=== PATIENT | male | born 1965 | race Hispanic/Latino ===

== ENCOUNTER 2017-07-01 21:07 | Emergency (ER) | payer OTHER ==
--- OUTSIDE RECORDS SUMMARY | 2017-07-01 21:09 | XMS REPORT ---
:1965 Author Organization [employer] Care Team Providers Name Role Phone Jose Luis Ariel Provider Role Unavailable Allergies No Known Allergies Problems Problem Type Condition Code Onset Dates Condition Status Problem History of CVA (cerebrovascular Z86.73 Active accident) without residual deficits Problem Myocardial infarction I21.3 Active Problem Dysthymic disorder F34.1 Active Problem Coronary atherosclerosis of [place] I25.10 Active coronary artery Problem Urinary frequency R35.0 Active Problem Prediabetes R73.03 Active Problem Obstructive sleep apnea G47.33 Active Problem Mixed hyperlipidemia E78.2 Active Problem Glaucoma H40.9 Active Problem Head ache R51 Active Assessment Head ache R51 Active Assessment Urinary frequency R35.0 Active Assessment Prediabetes R73.03 Active Assessment Dysthymic disorder F34.1 Active Assessment Mixed hyperlipidemia E78.2 Active Assessment History of CVA (cerebrovascular Z86.73 Active accident) without residual deficits Assessment Coronary atherosclerosis of [place] I25.10 Active coronary artery Assessment Obstructive sleep apnea G47.33 Active Problem H/O TIA (transient ischemic attack) Z86.73 Active and stroke Medications Medication Code System Code Instructions Start Date End Date Status Dosage Aspirin [facility] [place] [id number] 81 MG Orally Once Active 1 tablet a day Zoloft [facility] [place] [id number] 50 MG Orally Once Active 1 tablet a day Crestor [facility] [place] [id number] 20 MG Orally Once Active 1 tablet a day Results No Known Results Summary Purpose [employer]ClinicalWorks Submission
--- OUTSIDE RECORDS SUMMARY | 2017-07-01 21:09 | XMS REPORT | Clinical Summary ---
:1965 Author Organization [facility] Address [address] [place] [address] Care Team Providers Name Role Phone Jamal Tinoco MD Primary Care Provider Allergies Active Allergy Reactions Severity Noted Date Comments Dye Palpitations Low 11/19/2016 Current Medications Prescription Sig. Disp. Refills Start Date End Date Status rosuvastatin (CRESTOR) 20 Take 20 mg by mouth 11 09/24/2016 Active MG tablet once daily. sertraline (ZOLOFT) 50 MG Take 50 mg by mouth 11 09/24/2016 Active tablet once daily. latanoprost (XALATAN) PUT 1 DROP INTO 4 09/24/2016 Active 0.005 % ophthalmic BOTH EYES AT solution BEDTIME nitroglycerin (NITROSTAT) Place 0.4 mg under Active 0.4 MG SL tablet the tongue every 5 (five) minutes as needed for chest pain. aspirin (ECOTRIN) 81 MG Take 81 mg by mouth Active enteric coated tablet daily. Active Problems No known active problems Encounters Date Type Specialty Care Team Description 06/29/2017 Office Visit Cardiology Kalie Palpitations (Primary Lashay Cordero) 06/29/2017 Orders Only Cardiology Cesar Jade MD 05/04/2017 Hospital Encounter Procedural Schdonaldo, Paroxysmal SVT Cardiology Cesar Valle, (supraventricular MD tachycardia) 04/27/2017 Orders Only Cardiology Silas Paroxysmal SVT Shelbi (supraventricular Rocio, RN tachycardia) (Primary Dx) 02/25/2017 Orders Only Cardiology Tylor Munguia MD 02/15/2017 Hospital Encounter Procedural Kalie, Canceled (Patient) Cardiology Cesar Valle MD 02/02/2017 Documentation Cardiology Shelbi RosenCOURTNEY 02/01/2017 Office Visit Cardiology Kalie, History of Cesar Valle, palpitations (Primary MD Dx) 02/01/2017 Orders Only Cardiology Silas, Exercise intolerance (Primary Dx ); Shelbi SOBOE (shortness of breath on exertion) COURTNEY Chan 02/01/2017 Orders Only Cardiology Silas, Atrial fibrillation, Shelbi unspecified type Rocio RN (Primary Dx) 01/11/2017 Orders Only Cardiology Tylor Munguia Palpitations (Primary Dx); MD Sindy Shortness of breath; Tachycardia 12/24/2016 Office Visit Tylor Cain Cardiac arrhythmia, MD Sindy unspecified cardiac arrhythmia type (Primary Dx) 11/19/2016 Office Visit Cardiology Tylor Munguia Establishing care with new doctor, encounter for (Primary Dx); MD Sindy Palpitations; Shortness of breath; Hyperlipidemia, unspecified hyperlipidemia type; Atrial tachycardia 11/19/2016 Orders Only Cardiology Tylor Munguia Shortness of breath ( Primary Dx); MD Sindy Precordial pain after 06/30/2016 Family History Medical History Relation Name Comments No Known Problems Brother Hypertension Father Stroke Father Diabetes type II Mother Hypertension Mother Relation Name Status Comments Brother Alive Father Alive Mother Alive Social History Tobacco Use Types Packs/Day Years Used Date Never Smoker Smokeless Tobacco: Never Used Alcohol Use Drinks/Week oz/Week Comments No Sex Assigned at Date Recorded Not on file Last Filed Vital Signs Vital Sign Reading Time Taken Blood Pressure 117/69 06/29/2017 9:27 AM CDT Pulse 68 06/29/2017 9:27 AM CDT Temperature - - Respiratory Rate - - Oxygen Saturation 98% 05/04/2017 1:03 PM CLEAT BLANKER Inhaled Oxygen Concentration - - Weight 72.6 kg (160 lb) 06/29/2017 9:27 AM CDT Height 167.6 cm (5' 6") 06/29/2017 9:27 AM CDT Body Mass Index 25.82 06/29/2017 9:27 AM CDT Plan of Treatment Date Type Specialty Care Team Description 07/19/2017 Surgery Procedural Cesar Jade Ep loop recorder Cardiology MD Leonard removal [[id number] ([facility] [place] [address] [place] [address] 07/19/2017 Procedure Pass Procedural Cardiology 07/19/2017 Hospital Encounter Procedural Cesar Jade MD [address] [facility] [address] [place] [address] Health Maintenance Due Date Last Done Comments COLONOSCOPY 2016 INFLUENZA VACCINE 10/13/2017 Procedures Procedure Name Priority Date/Time Associated Comments Diagnosis CV PACEMAKER DEFIB ILR Routine 06/29/2017 12:00 INTERROGATION AM CDT CV CARDIAC EVENT Routine 02/25/2017 12:00 MONITOR AM CLEAT BLANKER CV PACEMAKER DEFIB ILR Routine 02/01/2017 12:00 INTERROGATION AM CLEAT BLANKER CV CARDIAC EVENT Routine 02/01/2017 12:00 MONITOR AM CLEAT BLANKER CV PACEMAKER DEFIB ILR Routine 02/01/2017 12:00 INTERROGATION AM CLEAT BLANKER CV STRESS TEST NUCLEAR Routine 11/25/2016 3:26 Shortness of Results for this CARDIO PM CDT breath procedure are in Precordial pain the results section. ECHOCARDIOGRAM 2D Routine 11/25/2016 2:40 Shortness of Results for this COMPLETE W MMODE PM CDT breath procedure are in SPECTRAL COLOR DOPPLER Precordial pain the results (10598) section. after 06/30/2016 Results ECG 12 lead (06/29/2017 9:28 AM)Only the most recent of4 resultswithin the time period is included. Component Value Ref Range Ventricular rate 72 Atrial rate 72 WY interval 156 QRSD interval 154 QT interval 396 QTC interval 433 P axis 1 70 QRS axis 1 113 T wave axis 57 EKG impression Normal sinus rhythm-Right bundle branch block-Left posterior fascicular block-^^^ Bifascicular block ^^^-Abnormal ECG-In automated comparison with ECG of 01-FEB-2017 07:52,-Minimal criteria for Inferior infarct are no longer present- Specimen Performing Laboratory [facility] [address] [place] [address] CV pacemaker defib or ilr interrogation (06/29/2017)Cardiac mri pulmonary vein ablation eval w contrast (05/04/2017 2:20 PM) Specimen Performing Laboratory [facility] [address] [place] [address] Narrative [facility] CMR Report Name: TRINIDAD JENNA :1965 Scan Date: 2017-05-04 13:06:44 Signed by Shannon Acosta M.D. (uid:20 15:25:47. SUMMARY ====== 1.Normal cardiac chamber sizes. NO intracardiac thrombus or mass. 2.Normal LV and borderline RV systolic function without wall motion abnormalities, (LVEF 60%, RVEF 51%). 3.NO myocardial infarction or scarring. 4.The study was not optimized for valvular assessment. 5.The thoracic aorta is of normal caliber without stenosis, aneurysm, or dissection. Normal pulmonary venous anatomy. 6. Other: A metallic artifact in near the upper left sternum, consistent with a history of implantable loop Recorder FINAL IMPRESSION: A.NO EVIDENCE OF LA OR JANESSA THROMBUS. B.NORMAL PULMONARY VENOUS ANATOMY. CORE EXAM ====== MEASUREMENTS ------ ---- VOLUMETRIC ANALYSIS . . || | LV| Reference| RV| Reference | +------+-------+-------+ +-------+ + | EDV| ml| 135.1 |(112-176) | 155.2 |(107-191) | | ESV| ml|54.6 |(27-67) |76 |(23-76) | | CO | L/min |5.15 ||5.07 || | MASS | g | 118.9 |(103-165) | | | | SV | ml|80.5 |(74-118)|79.2 |(69-127)| | EF | % | 59.59 |(58-76) | 51.03 |(53-79) | '------+-------+-------+ +-------+ ' HEART RATE:64 bpm LV DIMENSIONS WALL THICKNESS - ANTEROSEPTAL:0.8 cm WALL THICKNESS - INFEROLATERAL:0.7 cm LV FELICIA:5.3 cm LV ESD:3.7 cm LA DIMENSIONS (LV SYSTOLE) DIAMETER:2.6 cm AREA - 2 CHAMBER:13.9 cm^2 LENGTH - 2 CHAMBER:3.9 cm AREA - 4 CHAMBER:14.6 cm^2 LENGTH - 4 CHAMBER:4.7 cm VOLUME:44.23 ml AORTIC ROOT DIMENSIONS DIAMETER - ANNULUS:2.4 cm DIAMETER - SINUS OF VALSALVA:2.9 cm DIAMETER - SINOTUBULAR JUNCTION:2.4 cm AORTIC ROOT SIZE:Normal CONDENSED SUMMARY ------ ---- LV:Normal Wall Thickness. Cavity Size is Normal. No Mass/Thrombus. RV:Normal Wall Thickness. Contractility is Normal. Cavity Size is Normal. No Mass/Thrombus. No Pacemaker/Defibrillator Wire. IVS:Normal Interventricular Septum. LA:Cavity Size is Normal. No Mass/Thrombus. IAS:LIPOMATOUS HYPERTROPHY. RA:Cavity Size is Normal. No Mass/Thrombus. No Additional Findings. No Pacemaker/Defibrillator Wire. PER:Normal Pericardium. No Effusion. No Diastolic Collapse. PE:No Pleural Effusion. AV:Trileaflet. No Aortic Stenosis. TV:Normal Leaflets. No Tricuspid Stenosis. MV:Normal Leaflets. No Mitral Stenosis. PV:Normal Leaflets. No Pulmonic Stenosis. 17 SEGMENT ------ ---- . ------ ------. | Segments | Wall Motion| Hyperenhancement | Stress Perfusion | Interpretation | + + + + +---- ------ ------+ | Base Anterior| Normal/Hyper | None ||| | Base Anteroseptal| Normal/Hyper | None ||| | Base Inferoseptal| Normal/Hyper | None ||| | Base Inferior| Normal/Hyper | None ||| | Base Inferolateral | Normal/Hyper | None ||| | Base Anterolateral | Normal/Hyper | None ||| | Mid Anterior | Normal/Hyper | None ||| | Mid Anteroseptal | Normal/Hyper | None ||| | Mid Inferoseptal | Normal/Hyper | None ||| | Mid Inferior | Normal/Hyper | None ||| | Mid Inferolateral| Normal/Hyper | None ||| | Mid Anterolateral| Normal/Hyper | None ||| | Apical Anterior| Normal/Hyper | None ||| | Apical Septal| Normal/Hyper | None ||| | Apical Inferior| Normal/Hyper | None ||| | Apical Lateral | Normal/Hyper | None ||| | [place] | Normal/Hyper | None ||| + + + + +---- ------ ------+ | RV Segments| Wall Motion| Hyperenhancement | Stress Perfusion | Interpretation | + + + + +---- ------ ------+ | RV Basal Anterior| Normal/Hyper | None ||| | RV Basal Inferior| Normal/Hyper | None ||| | RV Mid | Normal/Hyper | None ||| | RV Apical| Normal/Hyper | None ||| ' + + + +---- ------ ------' FINDINGS INFARCT/SCAR SIZE:0 % VASCULAR ====== SCAN INFO ====== GENERAL ------ ---- SEDATION SEDATION USED?:No CONTRAST AGENT TYPE:Dotarem LOT NUMBER:[id number] EXPIRATION DATE:2018-09-11 00:00:00 VOLUME ADMINISTERED:30 ml DOSAGE FOR 0.5M:0.21 mmol/kg SERUM CREATININE:0.9 sCr GFR:94.93 ml/min/1.73m^2 FEMALE:No OR BLACK:No CREATININE DATE:2017-05-04 00:00:00 LAB RESULT HEMATOCRIT LEVEL:50 % HEMATOCRIT DATE:2017-05-04 00:00:00 VITALS HEIGHT:66 in HEIGHT:167.64 cm BODY WEIGHT:159.99 lbs BODY WEIGHT:72.57 kgs BSA::1.82 m^2 SYSTOLIC BP:135 mmHg DIASTOLIC BP:83 mmHg HEART RATE:65 BPM HEART RHYTHM:Sinus Rhythm PULSE SEQUENCE PULSE SEQUENCES:Single-Shot SSFP, IR GRE - Segmented, IR GRE - Single Shot, IR SSFP - Single Shot, Single Shot BB [place], SSFP Cine, Phase Contrast Velocity Mapping, 3D MRA w and w/o contrast SETUP TYPE:Clinical INPATIENT:No LOCATION:[facility] INCOMPLETE SCAN:No REASON(S) FOR SCAN:PV Ablation REFERRING PHYSICIAN:Cesar Jade MD TECHNICIANS:Checo Ruvalcaba ASSISTANTS:1) Declan Watson 2) Alireza Mckeon 3) Gissell Azul ------ ---- Patient Account [id number] CPT Codes 10063, [ , ]48867, [ , ]28138 ICD10 Codes R93.1, [ , ]I48.0 Procedure Note Interface, Radiology Results In - 05/04/2017 3:26 PM [facility] CMR Report Name: JENNA TRINIDAD : 1965 Scan Date: 2017-05-04 13:06:44 Signed by Shannon Acosta M.D. (uid:20 15:25:47. SUMMARY 1. Normal cardiac chamber sizes. NO intracardiac thrombus or mass. 2. Normal LV and borderline RV systolic function without wall motion abnormalities, (LVEF 60%, RVEF 51%). 3. NO myocardial infarction or scarring. 4. The study was not optimized for valvular assessment. 5. The thoracic aorta is of normal caliber without stenosis, aneurysm, or dissection. Normal pulmonary venous anatomy. 6. Other: A metallic artifact in near the upper left sternum, consistent with a history of implantable loop Recorder FINAL IMPRESSION: A. NO EVIDENCE OF LA OR JANESSA THROMBUS. B. NORMAL PULMONARY VENOUS ANATOMY. CORE EXAM MEASUREMENTS VOLUMETRIC ANALYSIS . . | | | LV | Reference | RV | Reference | +------+-------+-------+ +-------+ + | EDV | ml | 135.1 | (112-176) | 155.2 | (107-191) | | ESV | ml | 54.6 | (27-67) | 76 | (23-76) | | CO | L/min | 5.15 | | 5.07 | | | MASS | g | 118.9 | (103-165) | | | | SV | ml | 80.5 | (74-118) | 79.2 | (69-127) | | EF | % | 59.59 | (58-76) | 51.03 | (53-79) | '------+-------+-------+ +-------+ ' HEART RATE: 64 bpm LV DIMENSIONS WALL THICKNESS - ANTEROSEPTAL: 0.8 cm WALL THICKNESS - INFEROLATERAL: 0.7 cm LV FELICIA: 5.3 cm LV ESD: 3.7 cm LA DIMENSIONS (LV SYSTOLE) DIAMETER: 2.6 cm AREA - 2 CHAMBER: 13.9 cm^2 LENGTH - 2 CHAMBER: 3.9 cm AREA - 4 CHAMBER: 14.6 cm^2 LENGTH - 4 CHAMBER: 4.7 cm VOLUME: 44.23 ml AORTIC ROOT DIMENSIONS DIAMETER - ANNULUS: 2.4 cm DIAMETER - SINUS OF VALSALVA: 2.9 cm DIAMETER - SINOTUBULAR JUNCTION: 2.4 cm AORTIC ROOT SIZE: Normal CONDENSED SUMMARY LV:Normal Wall Thickness. Cavity Size is Normal. No Mass/Thrombus. RV:Normal Wall Thickness. Contractility is Normal. Cavity Size is Normal. No Mass/Thrombus. No Pacemaker/Defibrillator Wire. IVS:Normal Interventricular Septum. LA:Cavity Size is Normal. No Mass/Thrombus. IAS:LIPOMATOUS HYPERTROPHY. RA:Cavity Size is Normal. No Mass/Thrombus. No Additional Findings. No Pacemaker/Defibrillator Wire. PER:Normal Pericardium. No Effusion. No Diastolic Collapse. PE:No Pleural Effusion. AV:Trileaflet. No Aortic Stenosis. TV:Normal Leaflets. No Tricuspid Stenosis. MV:Normal Leaflets. No Mitral Stenosis. PV:Normal Leaflets. No Pulmonic Stenosis. 17 SEGMENT . . | Segments | Wall Motion | Hyperenhancement | Stress Perfusion | Interpretation | + + + + +---- + | Base Anterior | Normal/Hyper | None | | | | Base Anteroseptal | Normal/Hyper | None | | | | Base Inferoseptal | Normal/Hyper | None | | | | Base Inferior | Normal/Hyper | None | | | | Base Inferolateral | Normal/Hyper | None | | | | Base Anterolateral | Normal/Hyper | None | | | | Mid Anterior | Normal/Hyper | None | | | | Mid Anteroseptal | Normal/Hyper | None | | | | Mid Inferoseptal | Normal/Hyper | None | | | | Mid Inferior | Normal/Hyper | None | | | | Mid Inferolateral | Normal/Hyper | None | | | | Mid Anterolateral | Normal/Hyper | None | | | | Apical Anterior | Normal/Hyper | None | | | | Apical Septal | Normal/Hyper | None | | | | Apical Inferior | Normal/Hyper | None | | | | Apical Lateral | Normal/Hyper | None | | | | [place] | Normal/Hyper | None | | | + + + + +---- + | RV Segments | Wall Motion | Hyperenhancement | Stress Perfusion | Interpretation | + + + + +---- + | RV Basal Anterior | Normal/Hyper | None | | | | RV Basal Inferior | Normal/Hyper | None | | | | RV Mid | Normal/Hyper | None | | | | RV Apical | Normal/Hyper | None | | | ' + + + +---- ' FINDINGS INFARCT/SCAR SIZE: 0 % VASCULAR SCAN INFO GENERAL SEDATION SEDATION USED?: No CONTRAST AGENT TYPE: Dotarem LOT NUMBER: [id number] EXPIRATION DATE: 2018-09-11 00:00:00 VOLUME ADMINISTERED: 30 ml DOSAGE FOR 0.5M: 0.21 mmol/kg SERUM CREATININE: 0.9 sCr GFR: 94.93 ml/min/1.73m^2 FEMALE: No OR BLACK: No CREATININE DATE: 2017-05-04 00:00:00 LAB RESULT HEMATOCRIT LEVEL: 50 % HEMATOCRIT DATE: 2017-05-04 00:00:00 VITALS HEIGHT: 66 in HEIGHT: 167.64 cm BODY WEIGHT: 159.99 lbs BODY WEIGHT: 72.57 kgs BSA:: 1.82 m^2 SYSTOLIC BP: 135 mmHg DIASTOLIC BP: 83 mmHg HEART RATE: 65 BPM HEART RHYTHM: Sinus Rhythm PULSE SEQUENCE PULSE SEQUENCES: Single-Shot SSFP, IR GRE - Segmented, IR GRE - Single Shot, IR SSFP - Single Shot, Single Shot BB [place], SSFP Cine, Phase Contrast Velocity Mapping, 3D MRA w and w/o contrast SETUP TYPE: Clinical INPATIENT: No LOCATION: [facility] INCOMPLETE SCAN: No REASON(S) FOR SCAN: PV Ablation REFERRING PHYSICIAN: Cesar Jade MD TECHNICIANS: Checo Ruvalcaba ASSISTANTS: 1) Declan Watson 2) Alireza Mckeon 3) Gissell Azul Patient Account [id number] CPT Codes 23116, [ , ]73013, [ , ]29862 ICD10 Codes R93.1, [ , ]I48.0 Estimated GFR (05/04/2017 11:52 AM) Component Value Ref Range GFR Non Af Amer 89 mL/min/1.73 m2 GFR Af Amer >90 mL/min/1.73 m2 Comment: Chronic kidney disease: <60 mL/min/1.73m2 Kidney failure: <15 mL/min/1.73m2 The estimated GFR is calculated from the IDMS-traceable Modification of Diet in Renal Disease Equation. The accuracy of the calculation is poor when the creatinine is normal. Calculated values >90 mL/min/1.73m2 are not reported. This equation has not been validated in children (<18 years), women, the elderly (>70 years), or ethnic groups other than Caucasians and Americans. Specimen Performing Laboratory Blood [facility] [address] [place] [address] POC panel (05/04/2017 11:52 AM) Component Value Ref Range POC creatinine 0.9Comment: Testing performed on the ISTAT instrument 0.7 - 1.2 mg/dl by RN [id number]. POC hematocrit 50 41 - 51 % Specimen Performing Laboratory [facility]OM[facility] MEDICINE [address] [place] [address] CV Cardiac event monitor (02/25/2017)CV Cardiac event monitor (02/01/2017)CV pacemaker defib or ilr interrogation (02/01/2017)CV pacemaker defib or ilr interrogation (02/01/2017)Cv exercise treadmill stress (no imaging) (11/25/2016 3:26 PM) Component Value Ref Range Resting HR 66 Resting BP 127 Peak MET Achieved 5.3 Protocol Name NAREN Time in Exercise Phase 00:07:00 Max Systolic BP 157 Max Diastolic BP 75 Max Heart Rate 141 Max Predicted Heart Rate 171 Target HR Formula (220 - Age)*85% Test Indication SOB Arrhy During Ex ECG Interp Before EX ECG Interp During Ex Ex Summary Comment Overall HR Response to Exercise Overall BP Response To Exercise Reason for Termination WALKING LEXISCAN/SOB Stress Test Impression Waveform interpreted in report associated with image study. No interpretation is provided as part of this Stress ECG report.--Electronically Signed By Maryjo ENAMORADO, Papi Cordova ([id number]), news assignment editor Valencia Biggs ([id number]) on 11/26/2016 10:28:52 AM Specimen Performing Laboratory [facility] [address] [place] [address] Cv myocardial perfusion (11/25/2016 3:26 PM) Specimen Performing Laboratory [facility] [address] [place] [address] Narrative Nuclear Cardiology Laboratory [address] [place] [address], [place] [address] Fev: [phone] Myocardial Perfusion Imaging Report Pat.Name:JENNA TRINIDAD Pat.ID:[id number] St.Date: 11/25/2016 Refer.MD:TYLOR MUNGUIA MD Exam Time: 2:54:00 PM Study Type:Myocardial Perfusion Imaging Height:66inWeight:172lb BSA: 1.88 m2 DOBAge:1965,50Y Sex: MALE Nuclear Tech:LORA Bautista, ARRT(CT)/LORA Harper, ARRT Pat. Stat.:Outpatient Nuclear Event ID:[id number] Order ID:[id number] Reason for Study:Abnormal EKG*, Chest pain, unspecified*, Shortness of breath Procedures:Single Day Stress / Rest Race: Clinical Symptoms:Regadenoson SUMMARY: BASELINE ECGNormal Sinus Rhythm, RBBB STRESS TEST RESULTS Maximal Predicted HR171 beats/minute 85% Maximal Predicted HR 145 beats/minute Stress Test Duration7 minutes 00 seconds Resting Heart Rate66 beats/minute Maximal Heart Ymxh507 beats/minute Resting Blood Tnomijak981/66 mmHg Maximal Blood Jubrttfw104/75 mmHg % Maximal Heart Rate Achieved 82% Symptoms During TestShortness of breath Reason for Stopping TestAs per walking regadenoson protocol Maximal ST-segment shiftNone Stress-Induced Arrhythmias None Ischemic electrocardiographic changes (ST-segment depression) did not occur at peak walking regadenoson stress. STRESS TEST INTERPRETATION Normal maximal regadenoson stress test. SCINTIGRAPHIC RESULTS Perfusion Defect Size (% LV) 0 % Total 0 % Ischemia 0 % Scar Left Ventricular Perfusion Results There is normal tracer distribution during stress and rest. Gated SPECT Results The post-stress left ventricular ejection fraction is 71 % with normal regional wall motion and left ventricular thickening.Left ventricular end-diastolic volume is 94 ml; end-systolic volume is27 ml. The left ventricle is of normal size at stress and at rest.The right ventricle is of normal size with normal wall motion. Conclusion Normalwalking regadenoson Tc-99m tetrofosmin myocardial perfusion study.The left ventricular ejection fraction is normal. Comments Patients with a normal stress myocardial perfusion study have a low (< 1%) annual risk of cardiac or nonfatal myocardial infarction. Study Quality/Artifacts The study quality is good. The mild reduction in mid and basal inferolateral wall counts during stress is probably due to marked diaphragmatic and other soft tissue attenuation artifacts rather than coronary artery disease, which resolves with prone imaging. Comparison to Previous Study None available. Signed 11/25/2016 06:17 PM Papi Sibley MD Procedure Note Interface, Radiology Results In - 11/25/2016 6:25 PM CDT Nuclear Cardiology Laboratory [address] [place] [address], [address] [place] [address] Myocardial Perfusion Imaging Report Pat.Name: JENNA TRINIDAD Pat.ID: [id number] St.Date: 11/25/2016 Refer.MD: TYLOR MUNGUIA MD Exam Time: 2:54:00 PM Study Type:Myocardial Perfusion Imaging Height: 66in Weight: 172lb BSA: 1.88 m2 Age: 11 1965,50Y Sex: MALE Nuclear Tech:LORA Bautista, ARRT(CT)/ LORA Harper, ARRT Pat. Stat.:Outpatient Nuclear Event ID:[id number] Order ID: [id number] Reason for Study:Abnormal EKG*, Chest pain, unspecified*, Shortness of breath Procedures:Single Day Stress / Rest Race: Clinical Symptoms:Regadenoson SUMMARY: BASELINE ECG Normal Sinus Rhythm, RBBB STRESS TEST RESULTS Maximal Predicted HR 171 beats/minute 85% Maximal Predicted HR 145 beats/minute Stress Test Duration 7 minutes 00 seconds Resting Heart Rate 66 beats/minute Maximal Heart Rate 141 beats/minute Resting Blood Pressure 127/66 mmHg Maximal Blood Pressure 157/75 mmHg % Maximal Heart Rate Achieved 82% Symptoms During Test Shortness of breath Reason for Stopping Test As per walking regadenoson protocol Maximal ST-segment shift None Stress-Induced Arrhythmias None Ischemic electrocardiographic changes (ST-segment depression) did not occur at peak walking regadenoson stress. STRESS TEST INTERPRETATION Normal maximal regadenoson stress test. SCINTIGRAPHIC RESULTS Perfusion Defect Size (% LV) 0 % Total 0 % Ischemia 0 % Scar Left Ventricular Perfusion Results There is normal tracer distribution during stress and rest. Gated SPECT Results The post-stress left ventricular ejection fraction is 71 % with normal regional wall motion and left ventricular thickening. Left ventricular end-diastolic volume is 94 ml; end-systolic volume is 27 ml. The left ventricle is of normal size at stress and at rest. The right ventricle is of normal size with normal wall motion. Conclusion Normal walking regadenoson Tc-99m tetrofosmin myocardial perfusion study. The left ventricular ejection fraction is normal. Comments Patients with a normal stress myocardial perfusion study have a low (< 1%) annual risk of cardiac or nonfatal myocardial infarction. Study Quality/Artifacts The study quality is good. The mild reduction in mid and basal inferolateral wall counts during stress is probably due to marked diaphragmatic and other soft tissue attenuation artifacts rather than coronary artery disease, which resolves with prone imaging. Comparison to Previous Study None available. Signed 11/25/2016 06:17 PM Papi Sibley MD Echocardiogram complete w contrast and 3D if needed (11/25/2016 2:40 PM) Specimen Performing Laboratory [facility] [address] [place] [address] Narrative [facility] Echocardiography Report Pat.Name:JENNA TRINIDAD Pat.ID:[id number] .Date: 11/25/2016 Refer.MD:TYLOR MUNGUIA MD Exam Time: 2:19:00 PMStudy Type:Routine Echo Height:66inWeight:170lb BSA: 1.87 m2 DOBAge:1965,50Y Sex: MALEBP:116/66 HR:75 bpmSonogrphr: Vikas Plata [facility] Pat. Stat.:OutpatientRoom:[place] [address] Study Status:Final Echo Event ID:[id number] Order ID:[id number] Reason for Study:Chest Pain, Shortness of Breath History / Clinical:Chest Pain, Shortness of Breath Procedures:2D Echo, Colorflow Doppler Race: SUMMARY: LV systolic function is normal. LA size is normal. LV relaxation is low-normal. LV filling pressure is normal. No intracardiac flow abnormalities detected by Doppler. FINDINGS: LV: LV size is normal. LV systolic function is normal. Overall wallmotion is normal. Estimated EF is 65-69% RV: RV size is normal. RV systolic function is normal. LA: LA size is normal. RA: RA size is normal. AO: Aortic root diameter is normal. LUIS ENRIQUE: No pericardial effusion. AV: No structural AV abnormalities noted. MV: No structural MV abnormalities noted. PV: No structural PV abnormalities noted. TV: No structural TV abnormalities noted. Cavanaugh: LV relaxation is low-normal. LV filling pressure is normal. Hepaticvein pressure is normal, RA pressure < 5mmHg. Other:Insufficient TR jet to estimate PA systolic pressure. No intracardiacflow abnormalities detected by Doppler. MEASUREMENTS: 2D Parasternal [place] LVOT 1.8 cmLA Ds3.1 cm LVIDd4.7 cmIndex 2.5 cm/m Ao An1.9 cm LVIDs2.9 cmAo Rtd 3.4 cm Index1.8 cm/m LV%fs 39 % LV Kbwk615.5 g(122-174) IVSd 0.7 cmLVM Index 65 g/m2 LVPWd0.8 cmRWT0.4 LA Sng Plane LA Area8.9 cm2(8.8-23.4) LA Vol 17.1 ml Index9.1 ml/m LA LngAx 3.9 cm Signed 11/26/2016 10:18 PM Valente Landrum M.D. Procedure Note Interface, Radiology Results In - 11/26/2016 10:18 PM CDT [facility] Echocardiography Report Pat.Name: JENNA TRINIDAD.ID: [id number] .Date: 11/25/2016 Refer.MD: TYLOR MUNGUIA MD Exam Time: 2:19:00 PM Study Type:Routine Echo Height: 66in Weight: 170lb BSA: 1.87 m2 Age: 10 1965,50Y Sex: MALE BP: 116/66 HR: 75 bpm Sonogrphr: LUIS Alaniz Pat. Stat.:Outpatient Room: [place] [address] Study Status:Final Echo Event ID:[id number] Order ID: [id number] Reason for Study:Chest Pain, Shortness of Breath History / Clinical:Chest Pain, Shortness of Breath Procedures:2D Echo, Colorflow Doppler Race: SUMMARY: LV systolic function is normal. LA size is normal. LV relaxation is low-normal. LV filling pressure is normal. No intracardiac flow abnormalities detected by Doppler. FINDINGS: LV: LV size is normal. LV systolic function is normal. Overall wall motion is normal. Estimated EF is 65-69% RV: RV size is normal. RV systolic function is normal. LA: LA size is normal. RA: RA size is normal. AO: Aortic root diameter is normal. LUIS ENRIQUE: No pericardial effusion. AV: No structural AV abnormalities noted. MV: No structural MV abnormalities noted. PV: No structural PV abnormalities noted. TV: No structural TV abnormalities noted. Cavanaugh: LV relaxation is low-normal. LV filling pressure is normal. Hepatic vein pressure is normal, RA pressure < 5mmHg. Other: Insufficient TR jet to estimate PA systolic pressure. No intracardiac flow abnormalities detected by Doppler. MEASUREMENTS: 2D Parasternal [place] LVOT 1.8 cm LA Ds 3.1 cm LVIDd 4.7 cm Index 2.5 cm/m Ao An 1.9 cm LVIDs 2.9 cm Ao Rtd 3.4 cm Index 1.8 cm/m LV%fs 39 % LV Mass 121.5 g (122-174) IVSd 0.7 cm LVM Index 65 g/m2 LVPWd 0.8 cm RWT 0.4 LA Sng Plane LA Area 8.9 cm2 (8.8-23.4) LA Vol 17.1 ml Index 9.1 ml/m LA LngAx 3.9 cm Signed 11/26/2016 10:18 PM Valente Landrum M.D. Lipid panel (11/19/2016 10:18 AM) Component Value Ref Range Cholesterol, total 150 <200 mg/dL HDL cholesterol 35 (L) >40 mg/dL Triglycerides 197 (H) <150 mg/dL LDL cholesterol calculated 86 mg/dL (calc) Comment: Reference range: <100 Desirable range <100 mg/dL for patients with CHD or diabetes and <70 mg/dL for diabetic patients with known heart disease. The Ynes calculation is a validated novel method that provides better accuracy than the Friedewald equation in the estimation of LDL-C, particularly when TG levels are 150-400 mg/dL and LDL-C levels are lower than 70 mg/dL. Reference:Jayson TARIQ et al. Comparison of a Novel Method vs the Friedewald Equation for Estimating Low-Density Lipoprotein Cholesterol Levels From the Standard Lipid Profile. YEHUDA. 2013;310(19): 2732-0552. For additional information, please refer to http://education.bizk.it.b-datum/faq/VJR932 (This link is being provided for informational/ educational purposes only.) Cholesterol/HDL ratio 4.3 <5.0 (calc) Non-HDL cholesterol 115 <130 mg/dL (calc) Comment: For patients with diabetes plus 1 major ASCVD risk factor, treating to a non-HDL-C goal of <100 mg/dL (LDL-C of <70 mg/dL) is considered a therapeutic option. Specimen Performing Laboratory Blood [facility] Narrative FASTING:YES after 06/30/2016 Insurance Payer Benefit Plan / Group Subscriber ID Type Phone Address [employer]HC MEDICARE UNITED/CARE IMPROVEMENT MCR xxxxxxxxx [facility] [phone] [place] [id number]
--- OUTSIDE RECORDS SUMMARY | 2017-07-01 21:09 | XMS REPORT ---
:1965 Author Organization eClinicalWorks Care Team Providers Name Role Phone [facility] Provider Role Unavailable Allergies No Known Allergies Problems Problem Type Condition Code Onset Dates Condition Status Problem History of CVA (cerebrovascular Z86.73 Active accident) without residual deficits Problem Myocardial infarction I21.3 Active Problem Dysthymic disorder F34.1 Active Problem H/O TIA (transient ischemic attack) Z86.73 Active and stroke Problem Coronary atherosclerosis of [place] I25.10 Active coronary artery Problem Urinary frequency R35.0 Active Problem Prediabetes R73.03 Active Problem Obstructive sleep apnea G47.33 Active Problem Mixed hyperlipidemia E78.2 Active Problem Glaucoma H40.9 Active Problem Head ache R51 Active Medications No Known Medications Results No Known Results Summary Purpose eClinicalWorks Submission
--- NOTE | 2017-07-01 22:46 | EDPHYS ---
Physician Documentation [facility] Name: Marques Cai Age: 51 yrs Sex: Male : 1965 Arrival Date: 07/01/2017 Time: 21:08 Bed 17 Private MD: ED Physician Panfilo Tan HPI: 07/01 22:23 This 51 yrs old Male presents to ER via Ambulatory with complaints of Flu pm1 Symptoms. 22:23 The patient or guardian reports cough, with no sputum, flu symptoms, "fever no greater pm1 than 99," body aches. Onset: The symptoms/episode began/occurred 2 day(s) ago. Severity of symptoms: in the emergency department the symptoms are unchanged. Associated signs and symptoms: Pertinent positives: sore throat, sinus congestion, post nasal drainage, Pertinent negatives: chest pain, diarrhea, ear ache, nausea, vomiting. The patient has not recently seen a physician. Historical: - Allergies: 21:27 Iodine; aj - Home Meds: 21:27 Crestor oral oral [Active]; Zoloft Oral [Active]; aspirin 81 mg Oral chew 1 tab once aj daily [Active]; - PMHx: 21:27 Depression; CVA; Hyperlipidemia; aj - PSHx: 21:27 Loop monitor for heart; aj - Immunization history:: Adult Immunizations up to date. - Social history:: Smoking status: Patient/guardian denies using tobacco. ROS: 22:23 Constitutional: Negative for fever, chills, and weight loss, Eyes: Negative for injury, pm1 pain, redness, and discharge. 22:23 Neck: Negative for injury, pain, and swelling, Cardiovascular: Negative for chest pain, palpitations, and edema. 22:23 Abdomen/GI: Negative for abdominal pain, nausea, vomiting, diarrhea, and constipation, Back: Negative for injury and pain, : Negative for injury, bleeding, discharge, and swelling, MS/Extremity: Negative for injury and deformity, Skin: Negative for injury, rash, and discoloration, Neuro: Negative for headache, weakness, numbness, tingling, and seizure. 22:23 ENT: Positive for sore throat, Negative for ear pain, sinus congestion, sinus pain, difficulty swallowing, difficulty handling secretions, hoarseness. 22:23 Respiratory: Positive for cough, Negative for shortness of breath, sputum production, wheezing. Exam: 22:23 Constitutional: This is a well developed, well nourished patient who is awake, alert, pm1 and in no acute distress. Head/Face: Normocephalic, atraumatic. Eyes: Pupils equal round and reactive to light, extra-ocular motions intact. Lids and lashes normal. Conjunctiva and sclera are non-icteric and not injected. Cornea within normal limits. Periorbital areas with no swelling, redness, or edema. ENT: Nares patent. No nasal discharge, no septal abnormalities noted. Tympanic membranes are normal and external auditory canals are clear. Oropharynx with no redness, swelling, or masses, exudates, or evidence of obstruction, uvula midline. Mucous membranes moist. Neck: Trachea midline, no thyromegaly or masses palpated, and no cervical lymphadenopathy. Supple, full range of motion without nuchal rigidity, or vertebral point tenderness. No Meningismus. Chest/axilla: Normal chest wall appearance and motion. Nontender with no deformity. No lesions are appreciated. Cardiovascular: Regular rate and rhythm with a normal S1 and S2. No gallops, murmurs, or rubs. Normal PMI, no JVD. No pulse deficits. Respiratory: Lungs have equal breath sounds bilaterally, clear to auscultation and percussion. No rales, rhonchi or wheezes noted. No increased work of breathing, no retractions or nasal flaring. Abdomen/GI: Soft, non-tender, with normal bowel sounds. No distension or tympany. No guarding or rebound. No evidence of tenderness throughout. Back: No spinal tenderness. No costovertebral tenderness. Full range of motion. Skin: Warm, dry with normal turgor. Normal color with no rashes, no lesions, and no evidence of cellulitis. MS/ Extremity: Pulses equal, no cyanosis. Neurovascular intact. Full, normal range of motion. 22:23 Neuro: Orientation: is normal, Mentation: is normal, Motor: is normal, moves all fours, Gait: is steady, at a normal pace, without difficulty. Vital Signs: 21:27 BP 121 / 87; Pulse 81; Resp 19; Temp 98.0; Pulse Ox 98% on R/A; Weight 68.04 kg; Height aj 5 ft. 6 in. (167.64 cm); Pain 0/10; 21:27 Body Mass Index 24.21 (68.04 kg, 167.64 cm) MDM: 21:42 Patient medically screened. pm1 22:44 Data reviewed: vital signs. Data interpreted: Pulse oximetry: on room air is 98 %. pm1 Interpretation: normal. Counseling: I had a detailed discussion with the patient and/or guardian regarding: the historical points, exam findings, and any diagnostic results supporting the discharge/admit diagnosis, lab results, the need for outpatient follow up, to return to the emergency department if symptoms worsen or persist or if there are any questions or concerns that arise at home. 07/01 21:29 Order name: Flu; Complete Time: 22:17 07/01 21:50 Order name: Strep; Complete Time: 22:40 pm1 07/01 22:34 Order name: Throat Culture EDMS Administered Medications: No medications were administered Disposition: 07/02 03:01 Co-signature as Attending Physician, Panfilo Tan MD. Disposition: 07/01/17 22:45 Discharged to Home. Impression: Acute upper respiratory infection, unspecified. - Condition is Stable. - Discharge Instructions: Upper Respiratory Infection, Adult, Viral Infections. - Prescriptions for Guaifenesin AC 10- 100 mg/5 mL Oral Liquid - take 10 milliliter by ORAL route every 4 hours As needed; 240 milliliter. - Medication Reconciliation Form, Thank You Letter, Antibiotic Education, Prescription Opioid Use form. - Follow up: Emergency Department; When: As needed; Reason: Worsening of condition. Follow up: Private Physician; When: 2 - 3 days; Reason: Recheck today's complaints, Continuance of care, Re-evaluation by your physician. - Problem is new. - Symptoms have improved. Signatures: Dispatcher [employer] EDMS Conchita Guardado RN RN aj Leticia Huang RN RN lk1 Al Cuevas, EB AGRICULTURAL INSPECTOR pm1 Panfilo Tan MD MD
--- NOTE | 2017-07-01 22:46 | ER ---
Nurse's Notes [facility] Name: Marques Cai Age: 51 yrs Sex: Male : 1965 Arrival Date: 07/01/2017 Time: 21:08 Bed 17 Private MD: Diagnosis: Acute upper respiratory infection, unspecified Presentation: 07/01 21:25 Presenting complaint: Patient states: Flu like symptoms for 2 days. Transition of care: aj patient was not received from another setting of care. Onset of symptoms was June 29, 2017. Initial Sepsis Screen: Does the patient meet any 2 criteria? No. Patient's initial sepsis screen is negative. Does the patient have a suspected source of infection? No. Patient's initial sepsis screen is negative. Care prior to arrival: None. 21:25 Method Of Arrival: Ambulatory 21:25 Acuity: FARZAD 4 Triage Assessment: 21:27 General: Appears in no apparent distress. comfortable, Behavior is calm, cooperative, aj appropriate for age. Pain: Denies pain. Neuro: Level of Consciousness is awake, alert, obeys commands, Oriented to person, place, time, situation. Respiratory: Reports cough that is Airway is patent Respiratory effort is even, unlabored, Respiratory pattern is regular, symmetrical. Derm: Skin is intact, is healthy with good turgor, Skin is pink, warm \T\ dry. normal. Historical: - Allergies: 21:27 Iodine; aj - Home Meds: 21:27 Crestor oral oral [Active]; Zoloft Oral [Active]; aspirin 81 mg Oral chew 1 tab once aj daily [Active]; - PMHx: 21:27 Depression; CVA; Hyperlipidemia; aj - PSHx: 21:27 Loop monitor for heart; aj - Immunization history:: Adult Immunizations up to date. - Social history:: Smoking status: Patient/guardian denies using tobacco. Screenin:17 Abuse screen: Denies threats or abuse. Denies injuries from another. Nutritional lk1 screening: No deficits noted. Tuberculosis screening: No symptoms or risk factors identified. Fall Risk None identified. Assessment: 21:45 General: Appears in no apparent distress. Behavior is calm, cooperative, appropriate lk1 for age. Pain: Denies pain. Neuro: Level of Consciousness is awake, alert, obeys commands, Oriented to person, place, time, situation. Cardiovascular: Heart tones S1 S2 present Capillary refill is brisk Patient's skin is warm and dry. Respiratory: Airway is patent Respiratory effort is even, unlabored, Respiratory pattern is regular, symmetrical. Respiratory: Breath sounds are clear bilaterally. GI: Abdomen is non-distended, Reports nausea. : No signs and/or symptoms were reported regarding the genitourinary system. EENT: No signs and/or symptoms were reported regarding the EENT system. Derm: No signs and/or symptoms reported regarding the dermatologic system. Musculoskeletal: No signs and/or symptoms reported regarding the musculoskeletal system. Vital Signs: 21:27 BP 121 / 87; Pulse 81; Resp 19; Temp 98.0; Pulse Ox 98% on R/A; Weight 68.04 kg; Height aj 5 ft. 6 in. (167.64 cm); Pain 0/10; 21:27 Body Mass Index 24.21 (68.04 kg, 167.64 cm) ED Course: 21:08 Patient arrived in ED. ds1 21:26 Triage completed. aj 21:27 Arm band placed on left wrist. Patient placed in an exam room. aj 21:38 Al Cuevas NP is PHCP. pm1 21:38 Panfilo Tan MD is Attending Physician. pm1 21:52 Leticia Huang, COURTNEY is Primary Nurse. lk1 23:18 Patient has correct armband on for positive identification. Bed in low position. Call lk1 light in reach. 23:22 No provider procedures requiring assistance completed. Patient did not have IV access lk1 during this emergency room visit. Administered Medications: No medications were administered Outcome: 22:45 Discharge ordered by MD. pm1 23:23 Discharged to home ambulatory, with significant other. lk1 23:23 Condition: good 23:23 Discharge instructions given to patient, significant other, Instructed on discharge instructions, follow up and referral plans. medication usage, safety practices, Demonstrated understanding of instructions, follow-up care, medications, Prescriptions given X 2. 23:24 Patient left the ED. lk1 Signatures: Conchita Guardado RN Juanis Seth ds1 Leticia Huang RN RN lk1 Al Cuevas NP MOVIE STAR pm1
[2017-07-01 23:28] VITALS: BP 121/87; TEMP 98; O2SAT 98
== END 2017-07-01 23:24 | disposition home or self-care (01) ==
LOC: ER 21:07
DX: J06.9 Acute upper respiratory infection, unspecified (principal); E78.5 Hyperlipidemia, unspecified; F32.9 Major depressive disorder, single episode, unspecified; Z79.82 Long term (current) use of aspirin; Z91.048 Other nonmedicinal substance allergy status
CPT/HCPCS: 87070; 87081; 87804; 99282